=== PATIENT | female | born 1965 | race Caucasian/White ===

== ENCOUNTER 2018-03-24 13:34 | Inpatient (IN) | payer OTHER ==
[~2018-03-24] VITALS: Ht 154.9 cm; Wt 61.7 kg
[2018-03-24] VITALS (9 sets, daily range): BP systolic 111–145; BP diastolic 54–82; PULSE 90–101; RESP 16–22; TEMP 96.9–98.1; O2SAT 96–100
[2018-03-24] MEDS ORDERED: SERO25TA PO (14:27)
[2018-03-24] MEDS ORDERED: OMEP40CA2 PO (14:27)
[2018-03-24] MEDS ORDERED: TOPI25 PO (14:27)
[2018-03-24] MEDS ORDERED: SODIUM CHLOR 0.9% 250 ML INJ 250 ML IV ONE ×2 (14:30→18:15)
--- NOTE | 2018-03-24 14:46 | PD ---
HPI . Anemia Chief Complaint: Abnormal Results Time Seen by Provider: 14:26 Travel History International Travel<30 days: No Contact w/Intl Traveler<30days: No Traveled to known affect area: No History of Present Illness HPI This patient was sent in by her primary care physician for anemia. She states that she just decided that it was time that she obtain a primary care physician and have a history and physical. She had routine blood work done yesterday as part of her history and physical. She was called today and told to come to the hospital because her hemoglobin was 6. She states that she has been short of breath and fatigue. She has also been cold. She denies any known blood loss. She states that she has not had a menstrual cycle in several years. She has not had any GI bleeding. She has not noted any change in color of her stools. Symptom onset is unknown. She has noted the fatigue, coldness and shortness of breath for last several days. Modifying factor is that her shortness of breath is worse when she climbs stairs. Severities of symptoms is mild. Context is as above. PFSH Past Medical History GERD: Yes Insomnia: Yes Migraines: Yes Tetanus Vaccination: > 5 Years Influenza Vaccination: No ?: Not Past Surgical History Section: Yes (X 2) Social History Alcohol Use: No Tobacco Use: No Substance Use: No Allergies-Medications (Allergen,Severity, Reaction): Coded Allergies: sertraline (Verified Allergy, Severe, Psychosis, 03/24/18) Reported Meds & Prescriptions Reported Meds & Active Scripts Active Reported Seroquel (Quetiapine Fumarate) 25 Mg Tab 25 Mg PO HS Omeprazole 40 Mg Cap 40 Mg PO BID Topamax (Topiramate) 25 Mg Tab 25 Mg PO BID Review of Systems Except as stated in HPI: all other systems reviewed are Neg Physical Exam Narrative GENERAL: Awake and alert. No acute distress. SKIN: warm/dry. Pale skin. HEAD: Normocephalic. Atraumatic. EYES: Pupils equal and round. Extraocular movements are intact. Pale conjunctival. ENT: Mucous membranes pink and moist. NECK: Supple. Full range of motion without pain.. CARDIOVASCULAR: Regular rate and rhythm. RESPIRATORY: No accessory muscle use. Clear to auscultation. Breath sounds equal bilaterally. GASTROINTESTINAL: Abdomen soft. Nontender. Bowel sounds present. Nondistended. RECTAL: Brown stool. No masses. MUSCULOSKELETAL: No obvious deformities. Normal muscle tone. NEUROLOGICAL: Awake and alert. No obvious cranial nerve deficits. Motor grossly within normal limits. Normal speech. PSYCHIATRIC: Appropriate mood and affect; insight and judgment normal. Data Data Last Documented VS Vital Signs Date Time Temp Pulse Resp B/P (MAP) Pulse Ox O2 Delivery O2 Flow Rate FiO2 03/24/18 13:56 98.1 93 16 138/73 (94) 100 Orders Orders Red Blood Cells (Rbc) (03/24/18 14:27) Blood Product Administration (03/24/18 14:27) Sodium Chlor 0.9% 250 Ml Inj (Ns 250 Ml (03/24/18 14:30) Complete Blood Count With Diff (03/24/18 14:27) Type And Screen (03/24/18 14:27) [facility] Medical Decision Making Medical Screen Exam Complete: Yes Emergency Medical Condition: Yes Differential Diagnosis Differential diagnosis of anemia includes but is not limited to acute blood loss anemia, iron deficiency anemia, B12 deficiency, folate deficiency Narrative Course This patient presents with a chief complaint of anemia. She had routine blood work done as an outpatient yesterday and was called today to inform her that her hemoglobin was 6. She admits to symptoms of anemia including fatigue, shortness of breath and feeling cold. I have ordered a type and cross for 2 units and a CBC. Her care is being turned over to the oncoming physician at this time. [facility]emaPrompt Point of Care Internal Pos. & Neg. Controls: Passed Fecal Specimen Occult Blood: Negative Diagnosis Primary Impression: Anemia Qualified Codes: D64.9 - Anemia, unspecified Condition: Stable Reshma Kwong MD Mar 24, 2018 14:46
[2018-03-24 15:04] LABS: AUTOMATED NEUTROPHIL # 3.5 TH/MM3 (1.8-7.7); BASOPHIL # 0.1 TH/MM3 (0-0.2); BASOPHIL % 1.3 % (0.0-2.0); EOSINOPHIL # 0.2 TH/MM3 (0-0.4); EOSINOPHIL % 3.4 % (0.0-4.0); LYMPH % 18.9 % (9.0-44.0); MEAN CELL VOLUME 49.3 FL (80.0-100.0); MEAN CORPUSCULAR HEMOGLOBIN 14.4 PG (27.0-34.0); MEAN PLATELET VOLUME 6.7 FL (7.0-11.0); MONO % 4.9 % (0.0-8.0); MONOCYTE # 0.2 TH/MM3 (0-0.9); NEUT % 71.5 % (16.0-70.0); PLATELET COUNT 232 TH/MM3 (150-450); RED BLOOD COUNT 3.99 MIL/MM3 (4.00-5.30); RED CELL DISTRIBUTION WIDTH 23.5 % (11.6-17.2)
[2018-03-24 15:15] LABS: HEMOGLOBIN 5.7 GM/DL (11.6-15.3); MEAN CORPUSCULAR HGB CONC 29.2 % (32.0-36.0)
[2018-03-24 15:16] LABS: HEMATOCRIT 19.6 % (35.0-46.0)
[2018-03-24 16:16] LABS: ACANTHOCYTES 1+ (NORMAL); CHLORIDE 111 MEQ/L (98-107); KERATOCYTES 1+ (NORMAL); OVALOCYTES 2+ (NORMAL); SODIUM (NA) 141 MEQ/L (136-145); TARGET CELLS 2+ (NORMAL); TEARDROP RBCS 2+ (NORMAL)
[2018-03-24 16:20] LABS: ALBUMIN 4.1 GM/DL (3.4-5.0); BICARBONATE 21.1 MEQ/L (21.0-32.0); BLOOD UREA NITROGEN 8 MG/DL (7-18); CALCIUM 8.8 MG/DL (8.5-10.1); GLUCOSE,RANDOM 91 MG/DL (74-106)
[2018-03-24 16:23] LABS: ALT (GPT) 14 U/L (10-53); AST (GOT) 8 U/L (15-37); CREATININE 0.85 MG/DL (0.50-1.00); GLOMERULAR FILTRATION RATE 70 ML/MIN (>89)
[2018-03-24 16:25] LABS: TOTAL BILIRUBIN ADULT 0.3 MG/DL (0.2-1.0); TOTAL PROTEIN 8.1 GM/DL (6.4-8.2)
[2018-03-24 16:26] LABS: ALKALINE PHOSPHATASE 109 U/L (45-117)
--- NOTE | 2018-03-24 16:32 | PD ---
Data Data Last Documented VS Vital Signs Date Time Temp Pulse Resp B/P (MAP) Pulse Ox O2 Delivery O2 Flow Rate FiO2 03/24/18 15:11 90 16 145/77 (99) 100 Room Air 03/24/18 13:56 98.1 Orders Orders Red Blood Cells (Rbc) (03/24/18 14:27) Blood Product Administration (03/24/18 14:27) Sodium Chlor 0.9% 250 Ml Inj (Ns 250 Ml (03/24/18 14:30) Complete Blood Count With Diff (03/24/18 14:27) Type And Screen (03/24/18 14:27) Prothrombin Time / Inr (Pt) (03/24/18 15:53) Act Partial Throm Time (Ptt) (03/24/18 15:53) Comprehensive Metabolic Panel (03/24/18 15:53) Admit Order (Ed Use Only) (03/24/18 16:17) Vitamin B12 (03/24/18 16:22) Folate, Serum (03/24/18 16:22) Ferritin (03/24/18 16:22) Iron/Tibc Profile (03/24/18 16:22) Erythropoietin (Epo) (03/24/18 16:22) Haptoglobin (03/24/18 16:22) Retic Count (03/24/18 16:22) Ldh Serum (03/24/18 16:22) Beena Screen (03/24/18 16:22) Westergren Sedimentation Rate (03/24/18 16:22) Labs Laboratory Tests Test 03/24/18 14:50 03/24/18 16:05 White Blood Count 5.0 TH/MM3 Red Blood Count 3.99 MIL/MM3 Hemoglobin 5.7 GM/DL Hematocrit 19.6 % Mean Corpuscular Volume 49.3 FL Mean Corpuscular Hemoglobin 14.4 PG Mean Corpuscular Hemoglobin Concent 29.2 % Red Cell Distribution Width 23.5 % Platelet Count 232 TH/MM3 Mean Platelet Volume 6.7 FL Neutrophils (%) (Auto) 71.5 % Lymphocytes (%) (Auto) 18.9 % Monocytes (%) (Auto) 4.9 % Eosinophils (%) (Auto) 3.4 % Basophils (%) (Auto) 1.3 % Neutrophils # (Auto) 3.5 TH/MM3 Lymphocytes # (Auto) 1.0 TH/MM3 Monocytes # (Auto) 0.2 TH/MM3 Eosinophils # (Auto) 0.2 TH/MM3 Basophils # (Auto) 0.1 TH/MM3 CBC Comment AUTO DIFF Differential Comment AUTO DIFF CONFIRMED Platelet Estimate NORMAL Platelet Morphology Comment NORMAL Target Cells 2+ Tear Drop Cells 2+ Ovalocytes 2+ Acanthocytes 1+ Keratocytes 1+ Blood Urea Nitrogen 8 MG/DL Creatinine 0.85 MG/DL Random Glucose 91 MG/DL Total Protein 8.1 GM/DL Albumin 4.1 GM/DL Calcium Level 8.8 MG/DL Alkaline Phosphatase 109 U/L Aspartate Amino Transf (AST/SGOT) 8 U/L Alanine Aminotransferase (ALT/SGPT) 14 U/L Total Bilirubin 0.3 MG/DL Sodium Level 141 MEQ/L Potassium Level 3.3 MEQ/L Chloride Level 111 MEQ/L Carbon Dioxide Level 21.1 MEQ/L Anion Gap 9 MEQ/L Estimat Glomerular Filtration Rate 70 ML/MIN MDM Supervised Visit with ARMINDA: No Narrative Course This case is checked out to me by Dr. Kwong. Patient complains of fatigue and generalized weakness. Outpatient labs showed low hemoglobin of 6.0. She has history of anemia but no GI bleeding or vaginal bleeding. Hemoccult was negative 1 here CBC reveals normal platelet count and microcytic hypochromic anemia of 5.7 She has symptomatic anemia and will require transfusion and further evaluation I have ordered metabolic studies and coagulation studies Case reviewed with Dr. Jh Hernandez who will admit Diagnosis Primary Impression: Symptomatic anemia Admitting Information Admitting Physician Requests: Admit Condition: Stable Ibrahima Tilley MD Mar 24, 2018 16:32
[2018-03-24 16:41] LABS: INTERNATIONAL NORMALIZED RATIO 1.1 RATIO; PROTHROMBIN TIME - PATIENT 10.7 SEC (9.8-11.6)
[2018-03-24] MEDS ORDERED: NALOXONE HCL 0.4 MG/ML AMP IV PUSH PRN (18:15)
[2018-03-24] MEDS ORDERED: ACETAMINOPHEN 325 MG TAB PO PRN ×2 (18:15)
[2018-03-24] MEDS ORDERED: diphenhydrAMINE HCL 25 MG CAP PO SCH (18:15)
[2018-03-24] MEDS ORDERED: SODIUM CHLORIDE 0.9% FLUSH 10 ML FLUSH IV FLUSH PRN (18:15)
[2018-03-24] MEDS ORDERED: ONDANSETRON HCL 4 MG/2 ML VIAL IVP PRN (18:15)
[2018-03-24 18:33] LABS: RETIC % 1.2 % (0.4-3.0)
[2018-03-24 18:39] LABS: WESTERGREN SEDIMENTATION RATE 40 mm/hr (0-30)
[2018-03-24 19:54] LABS: IRON (FE) 9 MCG/DL (50-170); TOTAL IRON BINDING CAPACITY 447 MCG/DL (250-450)
[2018-03-24] MEDS ORDERED: PANTOPRAZOLE SODIUM 40 MG VIAL IV PUSH SCH (20:00)
[2018-03-24] MEDS: NS + KCL 20 MEQ INJ 1,000 ML IV SCH (20:17)
[2018-03-24] MEDS: QUEtiapine FUMARATE 25 MG TAB PO SCH (20:18)
[2018-03-24] MEDS: TOPIRAMATE 25 MG TAB PO SCH (20:18)
[2018-03-24] MEDS: SODIUM CHLORIDE 0.9% FLUSH 10 ML FLUSH IV FLUSH SCH (20:18)
[2018-03-24 20:19] LABS: FERRITIN 1 NG/ML (8-252); FOLATE 18.4 NG/ML (3.1-17.5)
[2018-03-25] VITALS (8 sets, daily range): BP systolic 111–139; BP diastolic 56–79; PULSE 73–94; RESP 20–22; TEMP 96.6–98.1; O2SAT 96–100
[2018-03-25] MEDS: NS + KCL 20 MEQ INJ 1,000 ML IV SCH (05:27)
[2018-03-25 06:39] LABS: AUTOMATED NEUTROPHIL # 3.1 TH/MM3 (1.8-7.7); BASOPHIL % 0.9 % (0.0-2.0); EOSINOPHIL # 0.2 TH/MM3 (0-0.4); EOSINOPHIL % 3.8 % (0.0-4.0); HEMATOCRIT 26.7 % (35.0-46.0); HEMOGLOBIN 8.2 GM/DL (11.6-15.3); LYMPH % 23.4 % (9.0-44.0); LYMPHOCYTE # 1.1 TH/MM3 (1.0-4.8); MEAN CELL VOLUME 57.9 FL (80.0-100.0); MEAN CORPUSCULAR HEMOGLOBIN 17.8 PG (27.0-34.0); MEAN CORPUSCULAR HGB CONC 30.7 % (32.0-36.0); MEAN PLATELET VOLUME 7.6 FL (7.0-11.0); MONO % 7.6 % (0.0-8.0); MONOCYTE # 0.4 TH/MM3 (0-0.9); NEUT % 64.3 % (16.0-70.0); PLATELET COUNT 202 TH/MM3 (150-450); RED CELL DISTRIBUTION WIDTH 35.4 % (11.6-17.2); WHITE BLOOD COUNT 4.8 TH/MM3 (4.0-11.0)
[2018-03-25 06:43] LABS: CHLORIDE 115 MEQ/L (98-107); SODIUM (NA) 144 MEQ/L (136-145)
[2018-03-25 06:47] LABS: CALCIUM 8.4 MG/DL (8.5-10.1)
[2018-03-25 06:48] LABS: ALBUMIN 3.7 GM/DL (3.4-5.0); BLOOD UREA NITROGEN 7 MG/DL (7-18); GLUCOSE,RANDOM 85 MG/DL (74-106)
[2018-03-25 06:51] LABS: ALT (GPT) 14 U/L (10-53); AST (GOT) 10 U/L (15-37); CREATININE 0.76 MG/DL (0.50-1.00); GLOMERULAR FILTRATION RATE 80 ML/MIN (>89)
[2018-03-25 06:53] LABS: TOTAL BILIRUBIN ADULT 0.6 MG/DL (0.2-1.0); TOTAL PROTEIN 7.4 GM/DL (6.4-8.2)
[2018-03-25 06:54] LABS: ALKALINE PHOSPHATASE 99 U/L (45-117)
[2018-03-25 07:10] LABS: ACANTHOCYTES 1+ (NORMAL); KERATOCYTES 1+ (NORMAL); OVALOCYTES 2+ (NORMAL); TARGET CELLS 1+ (NORMAL); TEARDROP RBCS 1+ (NORMAL)
--- NOTE | 2018-03-25 08:11 | MH ---
cc: Sharon Meredith MD DATE OF ADMISSION: 03/24/2018 ADMITTING DIAGNOSIS: Anemia. HISTORY OF PRESENT ILLNESS: Ms. Padron is a very pleasant 53-year-old female who states that she had gone earlier this week to establish with a PCP, had had blood work ordered and was today called and told that her hemoglobin was 6 and she needed to come to the emergency room. The patient states that she had actually been going to see the PCP, her new primary care doctor, because she had not seen a doctor in several years and particularly because she was having issues with significant heartburn and dysphagia. She said she normally takes Nexium, as well as Zantac. She states that for many years, she has had difficulties with heartburn coming up to her throat. She will frequently sit in an upright position. She also has issues with dysphagia. The family member tells me, they have actually had to call the [facility] because she had a pill stuck in her throat. She states that over the last several weeks, she has also noticed that she has been a little bit more fatigued than usual, she would fall asleep a little bit easier during the day. On the day that she was called from the doctor's office, she noticed that when she went up the flight of stairs, she felt exhausted when she reached the top flight. Typically, she is able to walk across a parking lot and across the without any difficulty. She denies any kind of palpitations. She says she has felt a little bit lightheaded on occasion. She tells me she thinks her blood pressure might have been a little bit low when she went to establish with her new primary. Aside from this, her only other major issues have been headaches and migraines. She said she would take ibuprofen for these. The most she would take would be maybe 4 pills a day, but she said this is not a daily thing and actually over the last couple of weeks, since she has been started on a new medication by her doctor, she has been on Topamax, her headaches have improved significantly. She has not had any problems with constipation, diarrhea or noticed any change in her bowel movements. She says that when she was much younger and still menstruating, she was told she was a little bit anemic at that time. She says her hemoglobin was 11. There is no family history of anemia as far she is aware. Her father has had peptic ulcer disease and has had several GI procedures because of this. No family history of colon cancer. Her niece does have Crohn's disease. PAST MEDICAL HISTORY: Significant for the migraines, anxiety primarily and the reflux. PAST SURGICAL HISTORY: Includes x 2. ALLERGIES: SHE IS NOT ABLE TO TAKE SERTRALINE. CURRENT MEDICATIONS: At home include Topamax 25 mg twice a day, Seroquel 25 mg at bedtime and she was taking omeprazole 40 mg twice a day. She says she would only take half a Seroquel at times. HABITS: She does not smoke or consume alcohol. SOCIAL HISTORY: She relocated from [place] to help care for her mother. She does have family nearby. 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 She is . She does tell me that she is expecting to be a grandmother, a little girl in July. REVIEW OF SYSTEMS: See HPI. She does state that she has had weight loss. She thinks maybe 5 pounds over the last several weeks. She denies any chest pain or palpitations. A little bit of shortness of breath with exertion, which she thought maybe was because she had gained weight. She denies any actual abdominal pain or change in her bowel movements. No weakness, numbness or tingling. PHYSICAL EXAMINATION: VITAL SIGNS: Last temperature was 98.1, pulse 90, respirations 18, blood pressure is 137/82, pulse oximetry is 96% on room air. GENERAL: This is a very pleasant female lying in the hospital bed. She is thin. She does look very pale. HEENT: She is normocephalic, atraumatic. EOM is intact. She has got moist oral mucosa. NECK: Supple. LUNGS: Clear to auscultation. She has no rhonchi, rales or wheezes. CARDIOVASCULAR: Her heart is regular. She really does not sound that tachycardic. I really do not hear any murmurs. ABDOMEN: Has good bowel sounds in all 4 quadrants. She has no midepigastric tenderness to palpation. EXTREMITIES: Show no clubbing, cyanosis or edema. SKIN: She does have some tattoos throughout her body. LABORATORY DATA: That was done was remarkable for a white count of 5, red blood count of 3.99, hemoglobin 5.7, hematocrit of 19.6, MCV 49, MCH 14, RDW of 23.5, platelet count of 232. She has target cells, teardrops, ovalocytes, acanthocytes and karyocytes. PT is 10.7, INR is 1.1, PTT 25.6. Sodium is 141, potassium is 3.3, creatinine 0.85, random glucose was 91, total bilirubin was 0.3. ASSESSMENT AND PLAN: This 53-year-old female presented to the emergency room for abnormal labs showing anemia. At this point, she does seem to be symptomatically anemic. She has been admitted for transfusion and further workup. At this point because of her history of dysphagia and reflux, I am more inclined to think that perhaps this may be of gastrointestinal etiology and I will consult the GI doctors. I will continue on her medications for her migraine, as well as for anxiety and insomnia. I did forget to mention that the patient tells me that she does eat primarily a vegetarian diet. Further recommendations as the case develops. Sharon Meredith MD CAS/TONYA , 07:03 PM , 08:53 PM
[2018-03-25] MEDS: SODIUM CHLORIDE 0.9% FLUSH 10 ML FLUSH IV FLUSH SCH ×2 (09:00→19:48)
[2018-03-25] MEDS: TOPIRAMATE 25 MG TAB PO SCH ×2 (09:10→19:48)
[2018-03-25] MEDS: PANTOPRAZOLE SOD 40 MG DELAYED RELEASE TAB PO SCH ×2 (10:39→19:48)
--- NOTE | 2018-03-25 13:36 | HHI.PR ---
Subjective Remarks feels better today , her symptoms of sob and fatigue seem to have been gradual and she attributed them to other causes. dysphagia and heartburn have been present for years, father had significant hx of pud and required vagatomy per her sisters report today, some nausea during transfusion but she did not report it to nursing, she has been on iron supplement in the past and needs a small pill Objective Vitals Vital Signs Date Time Temp Pulse Resp B/P (MAP) Pulse Ox O2 Delivery O2 Flow Rate FiO2 03/25/18 07:50 96.6 73 20 128/79 (95) 99 03/25/18 04:00 97.2 74 20 117/72 (87) 100 03/25/18 01:48 97.7 78 20 119/71 99 03/25/18 00:15 98.1 81 22 111/67 99 03/25/18 00:00 97.5 94 22 111/56 (74) 98 03/24/18 23:59 97.5 94 22 111/54 98 03/24/18 23:55 97.5 94 22 111/54 98 03/24/18 22:25 97.7 97 20 122/68 100 03/24/18 22:10 97.2 96 20 113/76 98 03/24/18 21:00 99 21 03/24/18 20:00 96.9 101 20 124/63 (83) 100 03/24/18 17:43 03/24/18 17:07 90 18 137/82 (100) 96 Room Air 03/24/18 15:11 90 16 145/77 (99) 100 Room Air 03/24/18 13:56 98.1 93 16 138/73 (94) 100 Result Diagram: 03/25/18 0605 03/25/18 0605 Objective Remarks sitting in bed, slightly better color, NAD lung cta ant heart rrr not tachy abdomen good bowel sounds no midepigastric tenderness A/P Problem List: (1) Iron deficiency anemia ICD Codes: D50.9 - Iron deficiency anemia, unspecified Plan: hgb up to 8.2 s/p 2 units of blood will add niferex, she has significant reflux and dysphagia, has never had a colonoscopy, per ER MD report to me stool was heme negative. Consult placed to GI last pm. Discussed need for another unit of blood or iron infusion depending on how she responds. (2) Anxiety ICD Codes: F41.9 - Anxiety disorder, unspecified Status: Chronic Plan: per report does well on seroquel , continued (3) Migraine ICD Codes: G43.909 - Migraine, unspecified, not intractable, without status migrainosus Status: Chronic Plan: she was recently stated on topamax and she states this helps, will continue Discharge Planning discharge pending GI consult and evaluation addendum: patient seen by Dr Clements this evening who states she can be discharged and have outpatient egd/colon in his office on friday. Patient is agreeable to plan., Will discharge and have her f/u with him at his office ralhp Problem Qualifiers (1) Iron deficiency anemia: Qualified Codes: D50.9 - Iron deficiency anemia, unspecified Sharon Meredith MD Mar 25, 2018 13:36
--- NOTE | 2018-03-25 14:15 | RADRPT ---
EXAM DATE: 03/25/2018 2:13 PM EDT AGE/SEX: 53 years / Female INDICATIONS: Anemic, dysphagia, fatigue, short of breath. CLINICAL DATA: This is the patient's subsequent encounter. Patient reports that signs and symptoms h ave been present for 2 days and indicates a pain score of 0/10. MEDICAL/SURGICAL HISTORY: Gastroesophageal reflux disease. section. COMPARISON: No prior exams available for comparison. FINDINGS: PA and lateral views of the chest demonstrate the lungs to be symmetrically aerated without evidence of mass, infiltrate or effusion. The cardiomediastinal contours are unremarkable. Osseous structures are intact. CONCLUSION: Negative for acute process Electronically signed by: Jovanny Ferreira MD 03/25/2018 2:14 PM EDT
[2018-03-25 14:36] LABS: AUTOMATED NEUTROPHIL # 4.8 TH/MM3 (1.8-7.7); BASOPHIL % 0.7 % (0.0-2.0); EOSINOPHIL # 0.1 TH/MM3 (0-0.4); EOSINOPHIL % 1.8 % (0.0-4.0); HEMATOCRIT 27.7 % (35.0-46.0); HEMOGLOBIN 8.5 GM/DL (11.6-15.3); LYMPHOCYTE # 0.9 TH/MM3 (1.0-4.8); MEAN CELL VOLUME 58.2 FL (80.0-100.0); MEAN CORPUSCULAR HEMOGLOBIN 17.8 PG (27.0-34.0); MEAN CORPUSCULAR HGB CONC 30.6 % (32.0-36.0); MONO % 6.1 % (0.0-8.0); MONOCYTE # 0.4 TH/MM3 (0-0.9); NEUT % 77.4 % (16.0-70.0); PLATELET COUNT 242 TH/MM3 (150-450); RED BLOOD COUNT 4.76 MIL/MM3 (4.00-5.30); RED CELL DISTRIBUTION WIDTH 34.8 % (11.6-17.2); WHITE BLOOD COUNT 6.2 TH/MM3 (4.0-11.0)
[2018-03-25 15:19] LABS: ACANTHOCYTES 1+ (NORMAL); KERATOCYTES 1+ (NORMAL); OVALOCYTES 2+ (NORMAL); TARGET CELLS 1+ (NORMAL); TEARDROP RBCS 1+ (NORMAL)
[2018-03-25] MEDS: POLYSACCHARIDE IRON COMPLEX 150 MG CAP PO SCH ×2 (15:32→19:48)
[2018-03-25] MEDS ORDERED: NU-IRON PO (19:19)
--- NOTE | 2018-03-25 19:33 | PD.CONS ---
HPI History of Present Illness This is a 53 year old female who was found to have severe anemia on labs done in the PCP office. She denies any history of hematemesis or melena hematochezia. He reports symptoms of intermittent heartburn and dysphagia to solids and pills. She denies any nausea vomiting constipation diarrhea jaundice ascites edema. She reports history of recent weight loss PFSH Past Medical History Migraine headaches, anxiety Past Surgical History 2 Coded Allergies: sertraline (Verified Allergy, Severe, Psychosis, 03/24/18) Medications Topamax, Seroquel Family History No history of esophageal stomach and colorectal cancer or polyps in the family Social History Denies history of chronic smoking or alcohol abuse Review of Systems Gastrointestinal: COMPLAINS OF: Difficulty Swallowing, Heartburn GI Exam Vitals I&O Vital Signs Date Time Temp Pulse Resp B/P (MAP) Pulse Ox O2 Delivery O2 Flow Rate FiO2 03/25/18 15:50 96.9 82 20 139/71 (93) 100 03/25/18 11:50 97.4 76 20 125/66 (85) 99 03/25/18 08:00 96 21 03/25/18 07:50 96.6 73 20 128/79 (95) 99 03/25/18 04:00 97.2 74 20 117/72 (87) 100 03/25/18 01:48 97.7 78 20 119/71 99 03/25/18 00:15 98.1 81 22 111/67 99 03/25/18 00:00 97.5 94 22 111/56 (74) 98 03/24/18 23:59 97.5 94 22 111/54 98 03/24/18 23:55 97.5 94 22 111/54 98 03/24/18 22:25 97.7 97 20 122/68 100 03/24/18 22:10 97.2 96 20 113/76 98 03/24/18 21:00 99 21 03/24/18 20:00 96.9 101 20 124/63 (83) 100 I/O 03/24/18 03/24/18 03/24/18 03/25/18 03/25/18 03/25/18 07:00 15:00 23:00 07:00 15:00 23:00 Intake Total 0 ml 1017 ml 672 ml 1940 ml Output Total 500 ml Balance 0 ml 517 ml 672 ml 1940 ml Intake Oral 240 ml 1940 ml IV Total 0 ml 367 ml 672 ml Packed Cells 400 ml Blood Product IV Normal Saline Flush 10 ml Output Urine Total 500 ml # Voids 9 # Bowel Movements 1 Laboratory Test 03/24/18 20:00 03/25/18 06:05 03/25/18 14:26 Anti-Nuclear Antibody Screen NEG White Blood Count 4.8 TH/MM3 6.2 TH/MM3 Red Blood Count 4.60 MIL/MM3 4.76 MIL/MM3 Hemoglobin 8.2 GM/DL 8.5 GM/DL Hematocrit 26.7 % 27.7 % Mean Corpuscular Volume 57.9 FL 58.2 FL Mean Corpuscular Hemoglobin 17.8 PG 17.8 PG Mean Corpuscular Hemoglobin Concent 30.7 % 30.6 % Red Cell Distribution Width 35.4 % 34.8 % Platelet Count 202 TH/MM3 242 TH/MM3 Mean Platelet Volume 7.6 FL 7.0 FL Neutrophils (%) (Auto) 64.3 % 77.4 % Lymphocytes (%) (Auto) 23.4 % 14.0 % Monocytes (%) (Auto) 7.6 % 6.1 % Eosinophils (%) (Auto) 3.8 % 1.8 % Basophils (%) (Auto) 0.9 % 0.7 % Neutrophils # (Auto) 3.1 TH/MM3 4.8 TH/MM3 Lymphocytes # (Auto) 1.1 TH/MM3 0.9 TH/MM3 Monocytes # (Auto) 0.4 TH/MM3 0.4 TH/MM3 Eosinophils # (Auto) 0.2 TH/MM3 0.1 TH/MM3 Basophils # (Auto) 0.0 TH/MM3 0.0 TH/MM3 CBC Comment AUTO DIFF AUTO DIFF Differential Comment AUTO DIFF CONFIRMED AUTO DIFF CONFIRMED Target Cells 1+ 1+ Tear Drop Cells 1+ 1+ Ovalocytes 2+ 2+ Acanthocytes 1+ 1+ Keratocytes 1+ 1+ Blood Urea Nitrogen 7 MG/DL Creatinine 0.76 MG/DL Random Glucose 85 MG/DL Total Protein 7.4 GM/DL Albumin 3.7 GM/DL Calcium Level 8.4 MG/DL Alkaline Phosphatase 99 U/L Aspartate Amino Transf (AST/SGOT) 10 U/L Alanine Aminotransferase (ALT/SGPT) 14 U/L Total Bilirubin 0.6 MG/DL Sodium Level 144 MEQ/L Potassium Level 3.5 MEQ/L Chloride Level 115 MEQ/L Carbon Dioxide Level 19.0 MEQ/L Anion Gap 10 MEQ/L Estimat Glomerular Filtration Rate 80 ML/MIN Platelet Estimate NORMAL Platelet Morphology Comment NORMAL Physical Examination HEENT: Pupils round and reactive to light; normocephalic; atraumatic; no jaundice. Throat is clear. NECK: Neck is supple, no JVD, no lymphadenopathy. CHEST: Chest is clear to auscultation and percussion. CARDIAC: Regular rate and rhythm with no murmur gallop or rubs. ABDOMEN: Soft, nondistended, nontender; no hepatosplenomegaly; bowel sounds are present in all four quadrants. EXTREMITIES: No clubbing, cyanosis, or edema. SKIN: Normal; no rash; no jaundice. DRUG ABUSE WORKER: No focal deficits; alert and oriented times three. Assessment and Plan Assessment: (1) Symptomatic anemia ICD Codes: D64.9 - Anemia, unspecified Status: Acute (2) Migraine ICD Codes: G43.909 - Migraine, unspecified, not intractable, without status migrainosus Status: Chronic (3) Anxiety ICD Codes: F41.9 - Anxiety disorder, unspecified Status: Chronic (4) Iron deficiency anemia ICD Codes: D50.9 - Iron deficiency anemia, unspecified Plan 1. Protonix 40 mg a day 2. EGD and colonoscopy for further workup of iron deficiency anemia due to occult GI bleeding 3. Monitor labs Problem Qualifiers (1) Iron deficiency anemia: Qualified Codes: D50.9 - Iron deficiency anemia, unspecified Manolo Clements MD Mar 25, 2018 19:33
--- NOTE | 2018-03-25 19:33 | HHI.DS ---
Discharge Summary Admission Date Mar 25, 2018 at 13:24 Admitting Diagnosis symptomatic anemia (1) Iron deficiency anemia Diagnosis: Principal ICD Codes: D50.9 - Iron deficiency anemia, unspecified (2) Anxiety Diagnosis: Secondary ICD Codes: F41.9 - Anxiety disorder, unspecified Status: Chronic (3) Migraine Diagnosis: Secondary ICD Codes: G43.909 - Migraine, unspecified, not intractable, without status migrainosus Status: Chronic Consultants BARBARA Clements Brief History Pt presented to ER After doing routine blood work for new pcp . Found to be significantly anemic with hgb 5.6. Rectal in er was heme negative. Patient relayed several year hx of significant reflux as well as dysphagia. Only complaints were increased fatigue and more recently some sob. CBC/BMP: 03/25/18 1426 03/25/18 0605 Significant Findings Laboratory Tests Test 03/24/18 14:50 03/24/18 16:05 03/24/18 20:00 03/25/18 06:05 Red Blood Count 3.99 MIL/MM3 (4.00-5.30) Hemoglobin 5.7 GM/DL (11.6-15.3) 8.2 GM/DL (11.6-15.3) Hematocrit 19.6 % (35.0-46.0) 26.7 % (35.0-46.0) Mean Corpuscular Volume 49.3 FL (80.0-100.0) 57.9 FL (80.0-100.0) Mean Corpuscular Hemoglobin 14.4 PG (27.0-34.0) 17.8 PG (27.0-34.0) Mean Corpuscular Hemoglobin Concent 29.2 % (32.0-36.0) 30.7 % (32.0-36.0) Red Cell Distribution Width 23.5 % (11.6-17.2) 35.4 % (11.6-17.2) Mean Platelet Volume 6.7 FL (7.0-11.0) Neutrophils (%) (Auto) 71.5 % (16.0-70.0) Target Cells 2+ (NORMAL) 1+ (NORMAL) Tear Drop Cells 2+ (NORMAL) 1+ (NORMAL) Ovalocytes 2+ (NORMAL) 2+ (NORMAL) Acanthocytes 1+ (NORMAL) 1+ (NORMAL) Keratocytes 1+ (NORMAL) 1+ (NORMAL) Erythrocyte Sedimentation Rate 40 mm/hr (0-30) Aspartate Amino Transf (AST/SGOT) 8 U/L (15-37) 10 U/L (15-37) Potassium Level 3.3 MEQ/L (3.5-5.1) Chloride Level 111 MEQ/L (98-107) 115 MEQ/L (98-107) Estimat Glomerular Filtration Rate 70 ML/MIN (>89) 80 ML/MIN (>89) Iron Level 9 MCG/DL (50-170) Percent Iron Saturation 2.0 % (20-50) Ferritin 1 NG/ML (8-252) Folate 18.4 NG/ML (3.1-17.5) Calcium Level 8.4 MG/DL (8.5-10.1) Carbon Dioxide Level 19.0 MEQ/L (21.0-32.0) Test 03/25/18 14:26 Hemoglobin 8.5 GM/DL (11.6-15.3) Hematocrit 27.7 % (35.0-46.0) Mean Corpuscular Volume 58.2 FL (80.0-100.0) Mean Corpuscular Hemoglobin 17.8 PG (27.0-34.0) Mean Corpuscular Hemoglobin Concent 30.6 % (32.0-36.0) Red Cell Distribution Width 34.8 % (11.6-17.2) Neutrophils (%) (Auto) 77.4 % (16.0-70.0) Lymphocytes # (Auto) 0.9 TH/MM3 (1.0-4.8) Target Cells 1+ (NORMAL) Tear Drop Cells 1+ (NORMAL) Ovalocytes 2+ (NORMAL) Acanthocytes 1+ (NORMAL) Keratocytes 1+ (NORMAL) PE at Discharge sitting in bed, slightly better color, NAD lung cta ant heart rrr not tachy abdomen good bowel sounds no midepigastric tenderness Hospital Course Patient admitted and transfused 2 units of blood, labs were significant for iron deficiency anemia. Pt was seen by Dr Clements who discussed with me that patient would need egd/colonoscopy which could be done as outpatient on friday. Discussed with patient who wanted to do procedure as outpatient as she discussed with Dr Clements.. Patient advised to cont iron tablets an omeprazole at home and f/u with pcp to monitor response. She voiced understanding and was agreeable. Pt Condition on Discharge: Fair Discharge Disposition: Discharge Home Discharge Instructions DIET: Follow Instructions for: As Tolerated, No Restrictions Activities you can perform: Regular-No Restrictions Follow up Referrals: Gastroenterology - 03/27/18 with Manolo Clements MD PCP Follow-up - 1 Week with Bere Victor MD New Medications: Polysaccharide Iron Complex (Poly-Iron 150) 150 Mg Iron Cap 150 MG PO Q12HR for anemia for 30 Days, #60 CAP Continued Medications: Omeprazole (Omeprazole) 40 Mg Cap 40 MG PO BID, #30 CAP 0 Refills Quetiapine (Seroquel) 25 Mg Tab 25 MG PO HS, #30 TAB 0 Refills Topiramate (Topamax) 25 Mg Tab 25 MG PO BID for Migraines, #60 TAB 0 Refills Sharon Meredith MD Mar 25, 2018 19:33
[2018-03-25] MEDS: QUEtiapine FUMARATE 25 MG TAB PO SCH (19:48)
== END 2018-03-25 20:01 | disposition home or self-care (01) | DRG 812 ==
LOC: PHEFT 13:34 → PHEDA 16:17 → INTOOBSV 16:17 → PH3A 17:55 → OBSVTOIN 03-25 13:24
PROVIDERS: ADMIT Legal Medicine; ATTEND Legal Medicine
PROC: 30233N1 Transfusion of Nonautologous Red Blood Cells into Peripheral Vein, Percutaneous Approach (ICD-10-PCS; principal; 2018-03-24)
DX: D50.9 Iron deficiency anemia, unspecified (principal); R13.10 Dysphagia, unspecified; K21.9 Gastro-esophageal reflux disease without esophagitis; G43.909 Migraine, unspecified, not intractable, without status migrainosus; F41.9 Anxiety disorder, unspecified; R63.4 Abnormal weight loss; R06.02 Shortness of breath; G47.00 Insomnia, unspecified
CPT/HCPCS: 36430; 71046; 80053; 82607; 82668; 82728; 82746; 83010; 83020; 83540; 83550; 83615; 85025; 85044; 85610; 85652; 85730; 86038; 86850; 86900; 86901; 86920; 96361; 96365; 96375; C9113; G0378; J3480; J7050; P9016